=== PATIENT | male | born 1995 | race African-American/Black ===

== ENCOUNTER 2019-12-26 03:41 | Emergency (ER) | payer BC, OTHER ==
[2019-12-26 03:50] VITALS: BP 135/92; PULSE 56; TEMP 98; BMI 24.3
--- NOTE | 2019-12-26 04:37 | PDOC ---
History of Present Illness - General Chief Complaint: Blood Sugar Problem Stated Complaint: HYPOGLYCEMIA Time Seen by Provider: 12/26/19 04:16 History Source: Patient Exam Limitations: No Limitations - History of Present Illness Initial Comments: 12/26/19 04:41 Pt took his humalog last night without eating dinner he fell asleep. Blood sugar was low in the home where he lives, so he received some IV sigar and he feels better. Blood sugar here is 160. Pt has no complaints. He is asking for food, and is eating a turkey sandwich and some apple juice. Is this a multiple visit Asthma Patient?: No Timing/Duration: 1 hour Past History - Travel History Traveled outside of the country in the last 30 days: No Close contact w/someone who was outside of country & ill: No - Medical History Allergies/Adverse Reactions: Allergies Allergy/AdvReac Type Severity Reaction Status Date / Time No Known Allergies Allergy Unverified 12/26/19 03:55 Home Medications: Ambulatory Orders Insulin Lispro [Humalog] 100 unit SQ UTDICT 12/26/19 COPD: No Diabetes: Yes - Psycho-Social/Smoking History Smoking History: Never smoked Review of Systems - Review of Systems Constitutional: No: Symptoms Reported, See HPI, Chills, Diaphoresis, Fever, Loss of Appetite, Malaise, Night Sweats, Weakness, Weight Stable, Unintentional Wgt. Loss, Unexplained wgt Loss, Other HEENTM: No: Symptoms Reported, See HPI, Eye Pain, Blurred Vision, Tearing, Recent change in vision, Double Vision, Cataracts, Ear Pain, Ocular Prothesis, Ear Discharge, Nose Pain, Nose Congestion, Tinnitus, Nose Bleeding, Hearing L oss, Throat Pain, Throat Swelling, Mouth Pain, Dental Problems, Difficulty Swallowing, Mouth Swelling, Other Respiratory: No: Symptoms reported, See HPI, Cough, Orthopnea, Shortness of Breath, SOB with Exertion, SOB at Rest, Stridor, Wheezing, Productive cough, Hemoptysis, Other Cardiac (ROS): No: Symptoms Reported, See HPI, Chest Pain, Edema, Irregular Heart Rate, Lightheadedness, Palpitations, Syncope, Chest Tightness, Other ABD/GI: No: Symptoms Reported, See HPI, Abdominal Distended, Abd. Pain w/ defecation, Blood Streaked Bowels, Constipated, Diarrhea, Difficulty Swallowing, Nausea, Poor Appetite, Poor Fluid Intake, Rectal Bleeding, Vomiting, Indigestion, Abdominal cramping, Tarry Stools, Other Musculoskeletal: No: Symptoms Reported, See HPI, Back Pain, Gout, Joint Pain, Joint Swelling, Muscle Pain, Muscle Weakness, Neck Pain, Joint Stiffness, Other Neurological: No: Symptoms reported, See HPI, Headache, Numbness, Paresthesia, Pre-Existing Deficit, Seizure, Tingling, Tremors, Weakness, Unsteady Gait, Ataxia, Dizziness, Other *Physical Exam - Vital Signs Last Vital Signs Temp Pulse Resp BP Pulse Ox 98 F 56 L 16 135/92 100 12/26/19 03:44 12/26/19 03:44 12/26/19 03:44 12/26/19 03:44 12/26/19 03:44 - Physical Exam General Appearance: Yes: Nourished, Appropriately Dressed. No: Apparent Distress HEENT: positive: EOMI, ZACHARY, Normal ENT Inspection, Normal Voice, Symmetrical, TMs Normal, Pharynx Normal Neck: positive: Trachea midline, Supple Respiratory/Chest: positive: Lungs Clear, Normal Breath Sounds Cardiovascular: positive: Regular Rhythm, Regular Rate, S1, S2 Gastrointestinal/Abdominal: positive: Normal Bowel Sounds, Flat, Soft. negative: Tender Musculoskeletal: positive: Normal Inspection. 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
== END 2019-12-26 05:44 | disposition home or self-care (01) ==
LOC: FER 03:41
DX: E16.2 Hypoglycemia, unspecified (principal)
CPT/HCPCS: 82962; 99283-25